=== PATIENT | male | born 1960 | race Caucasian/White ===

== ENCOUNTER 2016-11-21 09:04 | Outpatient (CLI) | payer BC ==
[2016-11-21 11:18] LABS: ALT (SGPT) 30 U/L (0-55); AST (SGOT) 46 U/L (5-34); Alkaline Phosphatase 63 U/L (40-150); Anion Gap 15 mmol/L (10-20); BUN (Urea Nitrogen) 15 mg/dL (8.4-25.7); Bilirubin, Total 0.7 mg/dL (0.2-1.2); Calc. Creatinine Clearance 0 mL/min (70-130); Calcium 9.5 mg/dL (7.8-10.44); Carbon Dioxide 26 mmol/L (22-29); Chloride 100 mmol/L (98-107); Estimated GFR-MDRD 72; Globulin 3.8 g/dL (2.4-3.5); LDL Cholesterol, Calculated 102 mg/dL; Protein, Total 8.3 g/dL (6.0-8.3)
[2016-11-21 11:22] LABS: Hemoglobin A1c 5.1 % (4.0-6.0)
[2016-11-21 12:15] LABS: Hematocrit 39.7 % (42.0-52.0); Mean Platelet Volume 5.2 fL (7.4-10.4); Neutrophil 47 % (42-75); Red Blood Cell (RBC) Count 3.98 mill/uL (4.70-6.10)
[2016-11-21 19:09] LABS: Free T3 1.94 pg/mL (1.71-3.71)
== END 2016-11-21 09:05 | disposition home or self-care (01) ==
LOC: BURLAB 09:04
PROVIDERS: ATTEND Internal Medicine Endocrinology, Diabetes & Metabolism
DX: E78.2 Mixed hyperlipidemia (principal); E03.9 Hypothyroidism, unspecified; E55.9 Vitamin D deficiency, unspecified; E88.81 Metabolic syndrome and other insulin resistance; E29.1 Testicular hypofunction
CPT/HCPCS: 36415; 80053; 80061; 83036; 84403; 84439; 84443; 84481; 85025